=== PATIENT | male | born 1965 | race Caucasian/White ===

== ENCOUNTER 2023-01-08 11:45 | Emergency (ER) | payer OTHER ==
[~2023-01-08] VITALS: Ht 170.2 cm; Wt 79.4 kg
[2023-01-08] MEDS ORDERED: ASPI81TA31 PO (11:56)
[2023-01-08] MEDS ORDERED: CLOP75TA15 PO (11:56)
[2023-01-08 12:57] VITALS: BP 140/73
== END 2023-01-08 13:21 | disposition home or self-care (01) ==
LOC: ER 11:45
DX: R04.0 Epistaxis (principal); K76.9 Liver disease, unspecified; I25.10 Atherosclerotic heart disease of native coronary artery without angina pectoris; Z95.5 Presence of coronary angioplasty implant and graft; I10 Essential (primary) hypertension; Z79.82 Long term (current) use of aspirin; Z79.02 Long term (current) use of antithrombotics/antiplatelets; E78.5 Hyperlipidemia, unspecified
CPT/HCPCS: 30901; A4663

== ENCOUNTER 2023-01-09 15:32 | Emergency (ER) | payer OTHER ==
[~2023-01-09] VITALS: Ht 170.2 cm; Wt 79.4 kg
[~2023-01-09 15:32] MED LIST: ASPI81TA31 PO; CLOP75TA15 PO
--- NOTE | 2023-01-09 15:59 | NUR ---
[email or web address], medical screening exam in progress.
--- NOTE | 2023-01-09 16:09 | NUR ---
Patient is smiling. Patient is for discharged to home. Written and verbal after care instructions given to patient and family. Patient and family verbalized understanding and compliance of instructions. Stressed follow up with primary doctor and ENT specialist or return to ER for worsening s/s. Patient left ER in stable condition.
[2023-01-09 16:18] VITALS: BP 131/79
== END 2023-01-09 16:09 | disposition home or self-care (01) ==
LOC: ER 15:32
DX: Z48.00 Encounter for change or removal of nonsurgical wound dressing (principal); K72.90 Hepatic failure, unspecified without coma; I25.10 Atherosclerotic heart disease of native coronary artery without angina pectoris; Z95.5 Presence of coronary angioplasty implant and graft; E78.5 Hyperlipidemia, unspecified; I10 Essential (primary) hypertension; Z79.82 Long term (current) use of aspirin; Z79.02 Long term (current) use of antithrombotics/antiplatelets
CPT/HCPCS: A4663